=== PATIENT | female | born 1980 | race Caucasian/White ===

== ENCOUNTER 2021-07-28 14:01 | Emergency (ER) | payer OTHER ==
[2021-07-28] MEDS ORDERED: SODIUM CHLORIDE 0.9% 1000 ML INFUS.BAG IV ONE (14:30)
[2021-07-28] MEDS ORDERED: ACETAMINOPHEN 1000 MG/100 ML BAG IVPB ONE (14:30)
[2021-07-28 14:33] VITALS: BP 110/57; PULSE 77; TEMP 98.3; BMI 29.9
[2021-07-28 14:45] LABS: HCG,QUALITATIVE URINE Negative
[2021-07-28 14:51] LABS: EPITHELIAL CELLS MODERATE /hpf
[2021-07-28] MEDS ORDERED: ACETAMINOPHEN INJECTION 100 ML IVPB ONE (14:58)
[2021-07-28 15:03] LABS: HEMATOCRIT 42.9 % (32.4-45.2); MCH 31.8 pg (25.7-33.7); MEAN CELL VOLUME 90.7 fl (80-96); MEAN PLT VOLUME 8.7 fl (7.5-11.1); PLATELET COUNT 232.5 10^3/uL (134-434); RBC 4.73 10^6/uL (3.60-5.2)
[2021-07-28 15:16] LABS: ALBUMIN 3.7 g/dl (3.4-5.0); BILIRUBIN,TOTAL 0.6 mg/dl (0.2-1); CALCIUM 8.7 mg/dl (8.5-10); CREATININE 0.6 mg/dl (0.55-1.3); TOT PROT 6.3 g/dl (6.4-8.2)
[2021-07-28] MEDS ORDERED: ONDANSETRON 4 MG/2 ML VIAL IVPUSH ONE (17:09)
[2021-07-28] MEDS ORDERED: ONDANSETRON 4 MG/2 ML VIAL ONE (17:09)
== END 2021-07-28 19:30 ==
LOC: FER 14:01
PROC: 3E0333Z Introduction of Anti-inflammatory into Peripheral Vein, Percutaneous Approach (ICD-10-PCS; principal; 2021-07-28)
PROC: 3E033GC Introduction of Other Therapeutic Substance into Peripheral Vein, Percutaneous Approach (ICD-10-PCS; 2021-07-28)
DX: D25.9 Leiomyoma of uterus, unspecified (principal)
CPT/HCPCS: 36415; 74177-TC; 76830-TC; 80053; 81003; 81015; 84703; 85025; 99285-25

== ENCOUNTER 2022-05-04 10:37 | Day surgery (SDC) | payer OTHER ==
[~2022-05-04 10:37] MED LIST: FERRIC CARBOXYMALTOSE 750 MG in SODIUM CHLORIDE 250 ML IVPB ONE
[2022-05-04 17:47] VITALS: RESP 18; TEMP 99
[2022-05-04 17:49] VITALS: BP 110/62; PULSE 72
== END 2022-05-04 12:00 | disposition home or self-care (01) ==
LOC: JONCNONCHE 10:37 → J7W 10:38 → JONCNONCHE 12:00
PROVIDERS: ATTEND Internal Medicine Hematology & Oncology
PROC: 3E033GC Introduction of Other Therapeutic Substance into Peripheral Vein, Percutaneous Approach (ICD-10-PCS; principal; 2022-05-04)
DX: D50.9 Iron deficiency anemia, unspecified (principal)
CPT/HCPCS: 96365; J1439

== ENCOUNTER 2022-05-05 21:07 | Emergency (ER) | payer OTHER ==
[2022-05-05 21:26] VITALS: BP 112/50; PULSE 66; RESP 16; TEMP 98.8; BMI 31.2
[2022-05-05] MEDS ORDERED: metroNIDAZOLE 500 MG TABLET PO ONE (22:17)
== END 2022-05-05 22:53 | disposition home or self-care (01) ==
LOC: FER 21:07
DX: N76.0 Acute vaginitis (principal)
CPT/HCPCS: 99283-25

== ENCOUNTER 2022-05-11 09:06 | Day surgery (SDC) | payer OTHER ==
[2022-05-11] MEDS ORDERED: FERRIC CARBOXYMALTOSE 750 MG in SODIUM CHLORIDE 250 ML IVPB ONE (10:00)
[2022-05-11 16:29] VITALS: RESP 18; TEMP 98.1
[2022-05-11 16:36] VITALS: BP 130/52; PULSE 64
== END 2022-05-11 10:50 | disposition home or self-care (01) ==
LOC: JONCNONCHE 09:06 → J7W 09:07 → JONCNONCHE 10:50
PROVIDERS: ATTEND Internal Medicine Hematology & Oncology
PROC: 3E033GC Introduction of Other Therapeutic Substance into Peripheral Vein, Percutaneous Approach (ICD-10-PCS; principal; 2022-05-11)
DX: D50.9 Iron deficiency anemia, unspecified (principal)
CPT/HCPCS: 96365; J1439

== ENCOUNTER 2023-03-18 23:44 | Emergency (ER) | payer OTHER ==
[2023-03-18 23:54] VITALS: BP 114/73; PULSE 79; RESP 16; TEMP 97.8; BMI 31.2
[2023-03-19] MEDS ORDERED: SODIUM CHLORIDE 1,000 ML IV STA ×2 (00:46→02:22)
[2023-03-19] MEDS ORDERED: ONDANSETRON 4 MG/2 ML VIAL IVPUSH ONE (00:46)
[2023-03-19] MEDS ORDERED: ACETAMINOPHEN 1000 MG/100 ML BAG IVPB ONE (00:46)
[2023-03-19] MEDS ORDERED: ONDANSETRON 4 MG/2 ML VIAL ONE (00:48)
[2023-03-19] MEDS ORDERED: ACETAMINOPHEN INJECTION 100 ML IVPB ONE (00:48)
[2023-03-19 02:52] LABS: BASO % 0.2 % (0-2.0); EOS % 0.8 % (0-4.5); HEMATOCRIT 38.4 % (32.4-45.2); HEMOGLOBIN 12.3 GM/dL (10.7-15.3); LYMPH % 12.5 % (8-40); MCH 23.7 pg (25.7-33.7); MCHC 32.1 g/dl (32.0-36.0); MEAN CELL VOLUME 73.7 fl (80-96); MEAN PLT VOLUME 8.5 fl (7.5-11.1); MONO % 6.9 % (3.8-10.2); NEUT % 79.6 % (42.8-82.8); PLATELET COUNT 276 10^3/uL (134-434); RDW 15.4 % (11.6-15.6); WHITE BLOOD COUNT 6.3 K/mm3 (4.0-10.0)
[2023-03-19 03:35] LABS: ALBUMIN 3.5 g/dl (3.4-5.0); BILIRUBIN,TOTAL 0.5 mg/dL (0.2-1); BLOOD UREA NITROGEN 16.4 mg/dL (7-18); CALCIUM 8.2 mg/dL (8.5-10.1); CREATININE 0.7 mg/dL (0.55-1.3); POTASSIUM 3.8 mmol/L (3.5-5.1); TOT PROT 6.8 g/dl (6.4-8.2)
== END 2023-03-19 03:53 | disposition home or self-care (01) ==
LOC: FER 23:44
PROC: 3E033NZ Introduction of Analgesics, Hypnotics, Sedatives into Peripheral Vein, Percutaneous Approach (ICD-10-PCS; principal; 2023-03-19)
PROC: 3E033GC Introduction of Other Therapeutic Substance into Peripheral Vein, Percutaneous Approach (ICD-10-PCS; 2023-03-19)
PROC: 3E0337Z Introduction of Electrolytic and Water Balance Substance into Peripheral Vein, Percutaneous Approach (ICD-10-PCS; 2023-03-19)
PROC: 3E0337Z Introduction of Electrolytic and Water Balance Substance into Peripheral Vein, Percutaneous Approach (ICD-10-PCS; 2023-03-19)
DX: R11.2 Nausea with vomiting, unspecified (principal); R19.7 Diarrhea, unspecified; M79.10 Myalgia, unspecified site; R53.81 Other malaise; K52.9 Noninfective gastroenteritis and colitis, unspecified; Z20.822 Contact with and (suspected) exposure to COVID-19
CPT/HCPCS: 0241U-QW; 36415; 80053; 83690; 85025; 96361; 96374; 96375; 99284-25

== ENCOUNTER 2023-07-26 15:00 | Day surgery (SDC) | payer OTHER ==
[2023-07-26] MEDS: FERRIC CARBOXYMALTOSE 750 MG in SODIUM CHLORIDE 250 ML IVPB ONE (15:33)
[2023-07-26 17:24] VITALS: RESP 18; TEMP 98.4
[2023-07-26 17:26] VITALS: BP 133/77; PULSE 65
== END 2023-07-26 16:30 | disposition home or self-care (01) ==
LOC: JONCNONCHE 15:00 → J7W 15:02 → JONCNONCHE 16:30
PROVIDERS: ATTEND Internal Medicine Hematology & Oncology
PROC: 3E033GC Introduction of Other Therapeutic Substance into Peripheral Vein, Percutaneous Approach (ICD-10-PCS; principal; 2023-07-26)
DX: D50.9 Iron deficiency anemia, unspecified (principal)
CPT/HCPCS: 96365; J1439

== ENCOUNTER 2023-08-02 11:30 | Day surgery (SDC) | payer OTHER ==
[2023-08-02] MEDS: FERRIC CARBOXYMALTOSE 750 MG in SODIUM CHLORIDE 250 ML IVPB ONE (11:33)
[2023-08-02 13:40] VITALS: RESP 18; TEMP 98.2
[2023-08-02 13:43] VITALS: BP 109/68; PULSE 62
== END 2023-08-02 12:50 | disposition home or self-care (01) ==
LOC: J7W 11:30 → JONCNONCHE 11:30
PROVIDERS: ATTEND Internal Medicine Hematology & Oncology
PROC: 3E033GC Introduction of Other Therapeutic Substance into Peripheral Vein, Percutaneous Approach (ICD-10-PCS; principal; 2023-08-02)
DX: D50.9 Iron deficiency anemia, unspecified (principal)
CPT/HCPCS: 96365; J1439

== ENCOUNTER 2023-12-21 06:55 | Day surgery (SDC) | payer OTHER ==
[2023-12-14 14:48] VITALS: BMI 38.1
[2023-12-21] MEDS ORDERED: BUPIVACAINE HCL/PF 0.25% (2.5MG/ML) 10 ML VIAL ONE (07:36)
[2023-12-21] MEDS ORDERED: ACETAMINOPHEN INJECTION 100 ML ONE (08:39)
[2023-12-21] MEDS ORDERED: PROPOFOL 20 ML ONE ×2 (08:42→09:50)
[2023-12-21] MEDS ORDERED: METOCLOPRAMIDE HCL INJECTION 10 MG/2 ML VIAL ONE (08:42)
[2023-12-21] MEDS ORDERED: DEXAMETHASONE SOD PHOSPHATE 4 MG/1 ML VIAL ONE (08:42)
[2023-12-21] MEDS ORDERED: ceFAZolin SODIUM 1 GM VIAL ONE (08:42)
[2023-12-21] MEDS ORDERED: ONDANSETRON 4 MG/2 ML VIAL ONE ×2 (08:42→10:44)
[2023-12-21] MEDS ORDERED: MIDAZOLAM HCL 2 MG/2 ML SINGLE DOSE VIAL ONE (08:47)
[2023-12-21] MEDS ORDERED: oxyCODONE HCL 5 MG TABLET PO PRN (09:20)
[2023-12-21] MEDS ORDERED: LACTATED RINGERS SOLUTION 1,000 ML IV SCH (09:30)
[2023-12-21] MEDS: BUPIVACAINE HCL/PF 0.25% (2.5MG/ML) 10 ML VIAL IJ ONE (09:50)
[2023-12-21] MEDS ORDERED: FENTANYL CITRATE/PF 50 MCG/ML VIAL ONE ×2 (10:14→10:44)
[2023-12-21] MEDS: ONDANSETRON 4 MG/2 ML VIAL IVPUSH PRN (10:46)
[2023-12-21] MEDS ORDERED: oxyCODONE HCL 5 MG TABLET ONE (11:13)
[2023-12-21] MEDS: oxyCODONE HCL 5 MG TABLET PO ONE (11:15)
[2023-12-21 11:20] VITALS: RESP 16
[2023-12-21 12:21] VITALS: BP 112/67; PULSE 69; TEMP 97.8
== END 2023-12-21 12:41 | disposition home or self-care (01) ==
LOC: FASU 06:55
PROVIDERS: ATTEND Orthopaedic Surgery Sports Medicine
PROC: 0SBD4ZZ Excision of Left Knee Joint, Percutaneous Endoscopic Approach (ICD-10-PCS; 2023-12-21)
PROC: 0SBD4ZZ Excision of Left Knee Joint, Percutaneous Endoscopic Approach (ICD-10-PCS; 2023-12-21)
PROC: 0SBD4ZZ Excision of Left Knee Joint, Percutaneous Endoscopic Approach (ICD-10-PCS; 2023-12-21)
PROC: 0SBD4ZZ Excision of Left Knee Joint, Percutaneous Endoscopic Approach (ICD-10-PCS; principal; 2023-12-21 09:28)
DX: S83.242A Other tear of medial meniscus, current injury, left knee, initial encounter (principal); S83.282A Other tear of lateral meniscus, current injury, left knee, initial encounter; M94.262 Chondromalacia, left knee; M65.862 Other synovitis and tenosynovitis, left lower leg; X58.XXXA Exposure to other specified factors, initial encounter; Y92.9 Unspecified place or not applicable; Y93.9 Activity, unspecified
CPT/HCPCS: 94760; J0131